=== PATIENT | female | born 1935 | race Caucasian/White ===

== ENCOUNTER 2017-01-14 19:56 | Emergency (ER) | payer OTHER ==
[2017-01-14 20:06] VITALS: TEMP 97.7
--- NOTE | 2017-01-14 20:12 | EDPHY ---
H & P Stated Complaint: weakness, fall Time Seen by Provider: 01/14/17 20:12 HPI/ROS: CHIEF COMPLAINT: Global weakness, syncope HISTORY OF PRESENT ILLNESS: The patient presents to the ED with her family after an episode of syncope. The [place]. She has had a very busy 2-3 days with increasing activity and likely decreased oral intake. The patient has had no history of fever, cough, congestion or diarrhea. The patient did fall earlier onto a carpeted floor. The patient did not strike her head or lose consciousness. She has no complaints of headache, neck pain, chest pain, back pain or any traumatic injury. The patient does not use anticoagulants. The patient does have a history of intermittent UTIs. Her last UTI was in April of this year. The patient does have a history of stroke and TIA. REVIEW OF SYSTEMS: A comprehensive 10 point review of systems is otherwise negative aside from elements mentioned in the history of present illness. Source: Patient Exam Limitations: No limitations - Personal History Current Tetanus/Diphtheria Vaccine: Yes Current Tetanus Diphtheria and Acellular Pertussis (TDAP): Yes - Medical/Surgical History Hx Asthma: No Hx Chronic Respiratory Disease: No Hx Diabetes: Yes Hx Cardiac Disease: No Hx Renal Disease: No Hx Cirrhosis: No Hx Alcoholism: No Hx HIV/AIDS: No Hx Splenectomy or Spleen Trauma: No Other PMH: CVA, TIA, DM2, Dementia - Social History Smoking Status: Never smoked - Physical Exam Exam: General Appearance: Alert, no distress Eyes: Pupils equal and round no pallor or injection ENT, Mouth: Mucous membranes moist Respiratory: There are no retractions, lungs are clear to auscultation Cardiovascular: Regular rate and rhythm Gastrointestinal: Abdomen is soft and nontender, no masses, bowel sounds normal Neurological: A&O, normal motor function, normal sensory exam, normal cranial nerves Skin: Warm and dry, no rashes Musculoskeletal: Neck is supple nontender Extremities: symmetrical, full range of motion Constitutional: Initial Vital Signs Temperature (C) 36.5 C 01/14/17 20:03 Heart Rate 99 01/14/17 20:03 Respiratory Rate 20 01/14/17 20:03 Blood Pressure 138/67 H 01/14/17 20:03 O2 Sat (%) 96 01/14/17 20:03 O2 Delivery Mode Room Air O2 (L/minute) 2 Allergies/Adverse Reactions: No Known Allergies Allergy (Unverified 01/14/17 20:02) Home Medications: Medication Instructions Recorded Aspirin 01/14/17 Donepezil HCl 01/14/17 FLUoxetine 01/14/17 Fenofibrate 01/14/17 HCTZ (*) 01/14/17 Imodium Advanced Tab Chew 01/14/17 Levemir 01/14/17 Lisinopril 01/14/17 Memantine HCl 01/14/17 Novolog Flexpen 01/14/17 Simvastatin 01/14/17 Tolterodine Tartrate 01/14/17 Medical Decision Making - Diagnostics EKG Interpretation: EKG: Complete interpretation has been separately recorded in the [facility] archive. Summary impression: Sinus rhythm, right bundle branch block, nonspecific ST T wave changes noted ED Course/Re-evaluation: The patient had an IV established. The patient received a L of normal saline. The patient has no evidence of obvious traumatic injury noted on exam. The patient's EKG demonstrates no evidence of arrhythmia. The patient does have an elevated BUN of 32 consistent with pre renal azotemia and mild dehydration. The patient received an additional 1 L of normal saline. Her urinalysis is still pending. The patient will be turned over to Dr. Saxena at shift change pending IV fluid rehydration and evaluation of her urinalysis. Differential Diagnosis: Differential diagnosis considered includes dehydration, arrhythmia, metabolic abnormality, renal failure, urinary tract infection - Data Points Laboratory Results: Laboratory Results 01/14/17 20:25 01/14/17 20:25 01/14/17 01/14/17 20:25 20:25 WBC 7.85 10^3/uL 10^3/uL (3.80-9.50) RBC 4.58 10^6/uL 10^6/uL (4.18-5.33) Hgb 13.4 g/dL g/dL (12.6-16.3) Hct 40.6 % % (38.0-47.0) MCV 88.6 fL fL (81.5-99.8) MCH 29.3 pg pg (27.9-34.1) MCHC 33.0 g/dL g/dL (32.4-36.7) RDW 13.9 % % (11.5-15.2) Plt Count 216 10^3/uL 10^3/uL (150-400) MPV 12.3 fL H fL (8.7-11.7) Neut % (Auto) 68.7 % % (39.3-74.2) Lymph % (Auto) 21.1 % % (15.0-45.0) Divide % (Auto) 6.4 % % (4.5-13.0) Eos % (Auto) 2.8 % % (0.6-7.6) Baso % (Auto) 0.6 % % (0.3-1.7) Nucleat RBC Rel Count 0.0 % % (0.0-0.2) Absolute Neuts (auto) 5.39 10^3/uL 10^3/uL (1.70-6.50) Absolute Lymphs (auto) 1.66 10^3/uL 10^3/uL (1.00-3.00) Absolute Monos (auto) 0.50 10^3/uL 10^3/uL (0.30-0.80) Absolute Eos (auto) 0.22 10^3/uL 10^3/uL (0.03-0.40) Absolute Basos (auto) 0.05 10^3/uL 10^3/uL (0.02-0.10) Absolute Nucleated RBC 0.00 10^3/uL 10^3/uL (0-0.01) Immature Gran % 0.4 % % (0.0-1.1) Immature Gran # 0.03 10^3/uL 10^3/uL (0.00-0.10) Sodium 137 mEq/L mEq/L (134-144) Potassium 4.0 mEq/L mEq/L (3.5-5.2) Chloride 105 mEq/L mEq/L (97-110) Carbon Dioxide 18 mEq/l L mEq/l (22-31) Anion Gap 14 mEq/L mEq/L (8-16) BUN 32 mg/dL H mg/dL (7-23) Creatinine 1.0 mg/dL mg/dL (0.6-1.0) Estimated GFR 53 Glucose 398 mg/dL H mg/dL (70-100) Calcium 9.2 mg/dL mg/dL (8.5-10.4) Medications Given: Discontinued Medications Sodium Chloride (Ns) 1,000 mls @ 0 mls/hr IV EDNOW ONE; Wide Open PRN Reason: Protocol Stop: 01/14/17 20:33 Last Admin: 01/14/17 20:44 Dose: 1,000 mls Departure - Departure Referrals: NONE *PRIMARY CARE P,. [Primary Care Provider] - As per Instructions
[2017-01-14] MEDS ORDERED: NS 1,000 ML IV ONE ×2 (20:32→20:55)
--- NOTE | 2017-01-14 20:37 | CPEKG ---
Heart Rate: 94 RR Interval: 638 P-R Interval: 220 QRSD Interval: 122 QT Interval: 396 QTC Interval: 496 P [place]: -29 QRS [place]: -10 T Wave [place]: 12 EKG Severity - ABNORMAL ECG - EKG Impression: SINUS RHYTHM EKG Impression: FIRST DEGREE AV BLOCK EKG Impression: RIGHT BUNDLE BRANCH BLOCK EKG Impression: INFERIOR INFARCT, AGE INDETERMINATE Electronically Signed By: Gregorio Marshall 14-Jan-2017 21:03:44
[2017-01-14 20:39] LABS: % IMMATURE GRANULYOCYTES 0.4 % (0.0-1.1); ABSOLUTE IMMATURE GRANULOCYTES 0.03 10^3/uL (0.00-0.10); ADD DIFF? NO; ADD MORPH? NO; ADD SCAN? NO; ATYPICAL LYMPHOCYTE FLAG 0 (0-99); FRAGMENT RBC FLAG 0 (0-99); HEMATOCRIT 40.6 % (38.0-47.0); HEMOGLOBIN 13.4 g/dL (12.6-16.3); LEFT SHIFT FLG 0 (0-99); LIPEMIA HEMOLYSIS FLAG 80 (0-99); MEAN CELL HEMOGLOBIN 29.3 pg (27.9-34.1); MEAN CELL VOLUME 88.6 fL (81.5-99.8); MEAN PLATELET VOLUME 12.3 fL (8.7-11.7); PLATELET CLUMPS FLAG 0 (0-99); PLATELET COUNT 216 10^3/uL (150-400); RED BLOOD CELL COUNT 4.58 10^6/uL (4.18-5.33); RED CELL DISTRIBUTION WIDTH 13.9 % (11.5-15.2)
[2017-01-14 20:51] LABS: ANION GAP 14 mEq/L (8-16); CALCIUM 9.2 mg/dL (8.5-10.4); CARBON DIOXIDE 18 mEq/l (22-31); CHLORIDE 105 mEq/L (97-110); GLOMERULAR FILTRATION RATE 53; GLUCOSE 398 mg/dL (70-100); SODIUM 137 mEq/L (134-144)
[2017-01-14 21:20] VITALS: RESP 22
[2017-01-14 22:07] LABS: COLOR PALE YELLOW; LEUKOCYTE ESTERASE,URINE TRACE (NEGATIVE); NITRITE,URINE NEGATIVE (NEGATIVE)
[2017-01-14 22:43] LABS: BACTERIA 1+ /hpf (NONE SEEN); WBC,URINE 15-25 /hpf (0-3)
[2017-01-14] MEDS ORDERED: CEPHALEXIN 500 MG CAP PO ONE (22:54)
[2017-01-14 23:56] VITALS: BP 137/65; PULSE 83; O2SAT 94
== END 2017-01-14 23:56 | disposition home or self-care (01) ==
DX: N39.0 Urinary tract infection, site not specified (principal); E11.9 Type 2 diabetes mellitus without complications; B96.20 Unspecified Escherichia coli [E. coli] as the cause of diseases classified elsewhere; B96.89 Other specified bacterial agents as the cause of diseases classified elsewhere; Z86.73 Personal history of transient ischemic attack (TIA), and cerebral infarction without residual deficits